=== PATIENT | male | born 1985 | race Caucasian/White ===

== ENCOUNTER 2022-04-15 20:28 | Emergency (ER) | payer SELFPAY ==
[2022-04-15 20:30] VITALS: BP 155/74; PULSE 77; RESP 16; TEMP 36.6; O2SAT 98; BMI 28.8
--- NOTE | 2022-04-15 21:08 | EX.ED.UPPERE ---
HPI History of Present Illness Chief Complaint: Laceration Informant: patient Onset/Context/Timing Onset: Today Context: Sudden Onset Timing: Continuous Quality of Pain: Aching Location: left thumb Current Severity: Moderate Maximum Severity: Moderate Worsened by: palpation Relieved by: leaving alone Associated Symptoms Associated Symptoms: Negative for Parasthesia, Weakness or Loss of Funtion Narrative Narrative: Patient was carving a pumpkin with a kitchen knife, and in doing this he accidentally cut into his left thumb distally. He describes the knife going parallel to the nail and basically appearing as if it was dissected off of the nailbed and pulled back like a flap. He pulled it down and has been holding it ever since. [id number]. Tetanus Immunization: >10 years PFSH PFSH Medical History Smoker Home Medications hydrocodone-acetaminophen 5-325mg 5mg-325mg 1 tab PO Q4H PRN PRN Pain 2 days #10 TABLETS 04/15/22 [Rx Last Taken Unknown] Allergy/AdvReac Type Severity Reaction Status Date / Time No Known Allergies Allergy Verified 04/15/22 20:47 Social History Smoking Status: Current every day smoker tobacco type: cigarettes ROS ROS ED Constitutional Constitutional ED: Denies chills or fever(s) Musculoskeletal Musculoskeletal: Reports extremity pain; Denies neck pain Integumentary Reports wounds; Denies Abrasions or rash Neurologic Neurologic: Denies paresthesias or weakness EXAM Physical Exam Const Vital Signs: 04/15/22 20:30 Temperature 97.8 F Temperature Source Temporal Pulse Rate 77 Respiratory Rate 16 Blood Pressure 155/74 H Blood Pressure Mean 101 Pulse Ox 98 Oxygen Delivery Method Room Air Positive well nourished and well developed General Appearance ED: well developed and NAD Neck full ROM and supple Back/Spine normal ROM and normal to inspection Extremity Extremity Narrative: Tender distal left thumb. Patient is holding the nail down against the nailbed. The nail itself is lacerated at both its radial and ulnar aspects all the way down to the nail fold, but the nail is still within the fold. There is no repairable laceration outside of the nailbed. No other injuries. All tendon function intact. Nail and the bed area all tender but otherwise not. Neuro oriented x3, no focal motor deficits and no sensory deficits noted Sensorium / Orientation: alert Psych mental status grossly normal and thought process normal Skin no wounds Rashes: no rashes MDM MDM MDM Narrative Medical decision making narrative: Patient had throbbing pain with attempting to pull the nail back, and he was unable to tolerate. Therefore I initially discussed options with him and we placed LET topically against the area, he was still having significant pain 20 minutes later. Therefore he was amenable to a digital block so that we could evaluate the nailbed. This provided some anesthesia but incomplete, but he asked me to complete the procedure anyhow. The nail indeed hinges back at the cuticle, the central part of the nail completely released from the nailbed. There was significant venous oozing. I held the digital arteries occluded at the IPJ temporarily in order to evaluate the nailbed which was then done again, it appears that part of the nailbed was simply avulsed, and there is no bone exposed and no laceration to repair. I do not think removing the nail will be advantageous here, since the entirety of the nail is intact within the nail fold. I think you will probably lose the nail and will be replaced by a new one, and leaving the nail in place maximizes the chance of a new one growing which I discussed with him. I irrigated the nailbed with chlorhexidine, and had nursing place a bulky dressing with bacitracin as well as a aluminum cage splint to help protect it. If he has any further issues I advise following up with [facility] in [place]. With regards to his tetanus, he declines an update at this time due to financial issues which I think is fine this is a low risk tetanus wound, but he does understand that he needs to have a tetanus shot every 10 years as far as the recommendations are concerned. Procedures Other Procedures Procedure(s): digital block: Isopropanol prep. 12 cc plain 1% lidocaine placed to various areas surrounding the left thumb MCPJ and a little more proximal in attempts to perform digital block. He did have anesthesia but incomplete. No complications. Discharge Plan Triage Chief Complaint: Laceration ED Provider: Chema Sevilla Dx/Rx/DC Orders Clinical Impression: Injury of nail bed of left thumb, Laceration of left thumb with damage to nail Instructions: ED Laceration Small or ..., ED Detached Fingernail or Toenail Prescriptions: New hydrocodone-acetaminophen [hydrocodone-acetaminophen] 1 TABLET tablet 1 tab PO Q4H PRN PRN (Reason: Pain) 2 Days Qty: 10 0RF Primary Care Provider: Maicol Miller Referrals: Maicol Miller MD [Primary Care Provider] - 1 Week if not improving (or [facility] Activity Restrictions/Additional Instructions: Dressing changes daily, use antibiotic ointment against the affected area and may rewrap with the cage/splint as needed to help protect it against minor injury. Disposition Disposition: Home, Self Care
[2022-04-15] MEDS: Lidocaine/Epi/Tetracaine 50 ML 1 APPLIC TOPICAL (21:20)
[2022-04-15] MEDS: Lidocaine 1% (20 ml mdv) 20 ML Vial 10 ML INFILT (22:07)
[2022-04-15] MEDS: HYDROcodone Bitartrate/Apap 5/325 Tablet PO (23:01)
[2022-04-15 23:02] VITALS: BP 149/75; PULSE 90; RESP 15; O2SAT 99
== END 2022-04-15 23:04 | disposition home or self-care (01) ==
PROVIDERS: Emergency Provider Emergency Medicine; PCP Family Medicine; Visit Provider Emergency Medicine
DX: S61.112A Laceration without foreign body of left thumb with damage to nail, initial encounter (principal); W26.0XXA Contact with knife, initial encounter; Y93.89 Activity, other specified; Y99.8 Other external cause status; F17.210 Nicotine dependence, cigarettes, uncomplicated
CPT/HCPCS: 64450; 99283